=== PATIENT | female | born 1955 | race American Indian/Alaskan Native ===

== ENCOUNTER 2017-06-11 08:07 | Outpatient (CLI) | payer MEDICARE ==
[2017-06-11] MEDS ORDERED: XYLOCAINE TOPICAL 2% ONE (08:47)
[2017-06-11] MEDS ORDERED: XYLOCAINE TOPICAL 2% TP ONE (08:48)
== END 2017-06-11 08:08 | disposition home or self-care (01) ==
LOC: WOUND 08:07
PROVIDERS: ATTEND Nurse Practitioner
DX: T81.31XA Disruption of external operation (surgical) wound, not elsewhere classified, initial encounter (principal); I10 Essential (primary) hypertension; E03.8 Other specified hypothyroidism; Z87.891 Personal history of nicotine dependence; Y83.8 Other surgical procedures as the cause of abnormal reaction of the patient, or of later complication, without mention of misadventure at the time of the procedure; Y92.89 Other specified places as the place of occurrence of the external cause
CPT/HCPCS: 87075; 87116; G0463; 87076; 87186; 99205

== ENCOUNTER 2017-06-18 09:04 | Outpatient (CLI) | payer MEDICARE ==
[2017-06-18] MEDS ORDERED: XYLOCAINE TOPICAL 2% ONE (09:31)
[2017-06-18] MEDS ORDERED: XYLOCAINE TOPICAL 4% TP ONE (13:46)
== END 2017-06-18 09:05 | disposition home or self-care (01) ==
LOC: WOUND 09:04
PROVIDERS: ATTEND Surgery
DX: T81.31XD Disruption of external operation (surgical) wound, not elsewhere classified, subsequent encounter (principal); L02.211 Cutaneous abscess of abdominal wall; I10 Essential (primary) hypertension; E03.9 Hypothyroidism, unspecified; Z87.891 Personal history of nicotine dependence; Y83.8 Other surgical procedures as the cause of abnormal reaction of the patient, or of later complication, without mention of misadventure at the time of the procedure
CPT/HCPCS: 99214; G0463

== ENCOUNTER 2017-07-02 09:34 | Outpatient (CLI) | payer MEDICARE ==
[2017-07-02] MEDS ORDERED: XYLOCAINE TOPICAL 2% ONE (10:20)
[2017-07-02] MEDS ORDERED: XYLOCAINE TOPICAL 2% TP ONE (10:20)
== END 2017-07-02 09:35 | disposition home or self-care (01) ==
LOC: WOUND 09:34
PROVIDERS: ATTEND Nurse Practitioner
DX: T81.31XD Disruption of external operation (surgical) wound, not elsewhere classified, subsequent encounter (principal); E03.9 Hypothyroidism, unspecified; I10 Essential (primary) hypertension; Z87.891 Personal history of nicotine dependence; Y83.8 Other surgical procedures as the cause of abnormal reaction of the patient, or of later complication, without mention of misadventure at the time of the procedure

== ENCOUNTER 2017-07-16 09:01 | Outpatient (CLI) | payer MEDICARE ==
[2017-07-16] MEDS ORDERED: XYLOCAINE TOPICAL 2% TP ONE (09:26)
== END 2017-07-16 09:02 | disposition home or self-care (01) ==
LOC: WOUND 09:01
PROVIDERS: ATTEND Nurse Practitioner
DX: T81.31XD Disruption of external operation (surgical) wound, not elsewhere classified, subsequent encounter (principal); I10 Essential (primary) hypertension; E03.9 Hypothyroidism, unspecified; Z87.891 Personal history of nicotine dependence; Y83.8 Other surgical procedures as the cause of abnormal reaction of the patient, or of later complication, without mention of misadventure at the time of the procedure

== ENCOUNTER 2017-07-23 09:00 | Outpatient (CLI) | payer MEDICARE ==
[2017-07-23] MEDS ORDERED: XYLOCAINE TOPICAL 4% TP ONE ×2 (09:07→09:20)
== END 2017-07-23 09:01 | disposition home or self-care (01) ==
LOC: WOUND 09:00
PROVIDERS: ATTEND Nurse Practitioner
DX: T81.31XD Disruption of external operation (surgical) wound, not elsewhere classified, subsequent encounter (principal); E03.9 Hypothyroidism, unspecified; I10 Essential (primary) hypertension; Y83.9 Surgical procedure, unspecified as the cause of abnormal reaction of the patient, or of later complication, without mention of misadventure at the time of the procedure

== ENCOUNTER 2017-07-28 13:36 | Outpatient (CLI) | payer MEDICARE ==
[2017-07-28] MEDS ORDERED: XYLOCAINE TOPICAL 2% ONE (14:03)
== END 2017-07-28 13:37 | disposition home or self-care (01) ==
LOC: WOUND 13:36
PROVIDERS: ATTEND Surgery
DX: L02.211 Cutaneous abscess of abdominal wall (principal); I10 Essential (primary) hypertension; E03.9 Hypothyroidism, unspecified; Z87.891 Personal history of nicotine dependence
CPT/HCPCS: 99214; G0463